=== PATIENT | male | born 1960 | race Caucasian/White ===

== ENCOUNTER 2018-11-27 15:39 | Emergency (ER) | payer BC ==
[~2018-11-27] VITALS: Ht 172.7 cm; Wt 79.9 kg
[2018-11-27 15:50] VITALS: Ht 172.7 cm; Wt 79.9 kg
[2018-11-27] MEDS ORDERED: SOD CHLORIDE 0.9% 800 ML IV ONE (17:30)
[2018-11-27 17:47] VITALS: BP 152/90; PULSE 66; RESP 18
--- NOTE | 2018-11-27 18:09 | ERD ---
ER Documentation Chief Complaint Chief Complaint ELEVATED BLOOD GLUCOSE > 500 TODAY; COMPLIANT WITH MEDS HPI 58-year-old male with a history of insulin dependent diabetes who presents the emergency room with hyperglycemia. He is asymptomatic otherwise. He denies any chest pain or shortness of breath, no recent illness or fevers. No nausea vomiting or diarrhea. The patient intermittently takes his metformin and has a regular dosing of his insulin. Patient has been losing weight unintentionally. His sugar has been greater than 500 prior to arrival. ROS All systems reviewed and are negative except as per history of present illness. Allergies Allergies: Coded Allergies: No Known Allergy (Unverified , 01/18/14) PMhx/Soc History of Surgery: Yes (eye 00, Left leg 82, KIDNEY TUMOR REMOVAL, HERNIA REPAIR) Anesthesia Reaction: No Hx Neurological Disorder: No Hx Respiratory Disorders: No Hx Cardiac Disorders: No Hx Psychiatric Problems: No Hx Miscellaneous Medical Probl: Yes (DM Type II, BOWEL OBSTRUCTION) Hx Alcohol Use: Yes (SOCIALLY) Hx Tobacco Use: No Smoking Status: Former smoker FmHx Family History: diabetes Physical Exam Vitals Vital Signs Date Temp Pulse Resp B/P (MAP) Pulse Ox O2 O2 Flow FiO2 Time Delivery Rate 11/27/18 98.0 66 18 152/90 100 Room Air 17:47 (110) 11/27/18 97.7 72 16 136/80 97 15:50 (98) Physical Exam General: Well developed, well nourished, no acute distress Head: Normocephalic, atraumatic. Eyes: Pupils equally reactive, EOM intact ENT: Moist mucous membranes Neck: Supple, no lymphadenopathy Respiratory: Lungs clear bilaterally, no distress Cardiovascular: RRR, no murmurs, rubs, or gallops Abdominal: Soft, non-tender, non-distended, no peritoneal signs : Deferred MSK: No edema, no unilateral swelling, 5/5 strength Neurologic: Alert and oriented, moving all extremities, normal speech, no focal weakness, no cerebellar signs Skin: No rash Psych: Normal mood Result Diagram: 11/27/18 1731 11/27/18 1731 Results 24 hrs Laboratory Tests Test 11/27/18 17:26 11/27/18 17:31 11/27/18 17:40 11/27/18 17:59 Blood Gas Blood venous Specimen Source Arterial Blood 11/27/2018 5:30:4 Date Drawn 6 PM Arterial Blood VENOUS LINE Gas Puncture Site Frank Test N/A Venous Blood pH 7.354 Venous Blood 56.3 mmHG pCO2 (Temp Corrected) Venous Blood pO2 17.2 mmHG (Temp Corrected) Venous Blood 30.7 mmol/L HCO3 Venous Blood 22.8 mmHG Oxygen Saturation Venous Blood 3.5 mmol/L Base Excess Venous Blood 15.6 g/dl Total Hemoglobin Venous Blood 22.5 % Oxyhemoglobin Venous Blood 1.1 % Methemoglobin Carboxyhemoglobi 0.3 % n Blood Gas 37.0 C Temperature Blood Gas ROOM AIR Modality FiO2 21.0 % Blood Gas M.D. Notified Whom Blood Gas 11/27/2018 5:37:2 Notified Time 1 PM White Blood 10.5 10^3/ul Count Red Blood Count 4.99 10^6/ul Hemoglobin 14.9 g/dl Hematocrit 43.9 % Mean Corpuscular 88.0 fl Volume Mean Corpuscular 29.9 pg Hemoglobin Mean Corpuscular 33.9 g/dl Hemoglobin Yessenia nt Red Cell 12.0 % Distribution Width Platelet Count 255 10^3/UL Mean Platelet 10.7 fl Volume Immature 0.600 % Granulocytes % Neutrophils % 76.1 % Lymphocytes % 18.4 % Monocytes % 4.3 % Eosinophils % 0.1 % Basophils % 0.5 % Nucleated Red 0.0 /100WBC Blood Cells % Immature 0.060 10^3/ul Granulocytes # Neutrophils # 8.0 10^3/ul Lymphocytes # 1.9 10^3/ul Monocytes # 0.5 10^3/ul Eosinophils # 0.0 10^3/ul Basophils # 0.1 10^3/ul Nucleated Red 0.0 10^3/ul Blood Cells # Sodium Level 142 mmol/L Potassium Level 4.8 mmol/L Chloride Level 98 mmol/L Carbon Dioxide 31 mmol/L Level Anion Gap 13 Blood Urea 21 mg/dl Nitrogen Creatinine 0.72 mg/dl Est Glomerular > 60 mL/min Filtrat Rate mL/min Glucose Level 473 mg/dl Calcium Level 10.1 mg/dl Phosphorus Level 3.9 mg/dl Magnesium Level 2.0 mg/dl Urine Color STRAW Urine Clarity CLEAR Urine pH 5.0 Urine Specific 1.031 Coin Urine Ketones TRACE mg/dL Urine Nitrite NEGATIVE mg/dL Urine Bilirubin NEGATIVE mg/dL Urine NEGATIVE mg/dL Urobilinogen Urine Leukocyte NEGATIVE Mansi/ul Esterase Urine Hemoglobin NEGATIVE mg/dL Urine Glucose 3+ mg/dL Urine Total NEGATIVE mg/dl Protein Bedside Glucose 418 mg/dL Current Medications Medications Dose Sig/Chidi Start Time Status Last (Trade) Ordered Route PRN Stop Time Admin Dose Reason Admin Sodium 800 ml @ ONCE ONCE 11/27/18 11/27/18 Chloride 800 mls/hr IV 17:30 11/27/18 17:45 18:29 Procedures/MDM LAB INTERPRETATION: * Hyperglycemia without evidence of diabetic ketoacidosis MEDICAL DECISION MAKING: The patient presents with hyperglycemia. Based on the patient's history this is likely secondary to patient's poor diabetic regimen. The patient is intermittently taking metformin. Irregular dosing of insulin. The patient exhibits no signs or symptoms concerning for infection or infarction. Low concern for DKA though screening would be appropriate. I advised the family to keep a log of glucose values throughout the day as well as times that they administer the medications. The patient needs tighter control and a better regimen. He has primary care follow-up on Sunday, 2 days. ER COURSE: * Patient exhibits no signs of diabetic ketoacidosis. The patient received IV fluids. 10 units of subcutaneous Humalog. * At this point the patient can be safely discharged home. CONSULTATION: [None] DISPOSITION PLAN: We discussed follow up with the patient's primary care doctor within 24 to 48 hours as needed. We also discussed return to the emergency room for worsening symptoms or worsening condition. Outpatient referral: Primary care on Sunday Discharge Medications: Continue home diabetes regimen Departure Diagnosis: Primary Impression: Hyperglycemia Condition: Stable Patient Instructions: Hyperglycemia (High Blood Sugar) Referrals: [facility] YOU HAVE RECEIVED A MEDICAL SCREENING EXAM AND THE RESULTS INDICATE THAT YOU DO NOT HAVE A CONDITION THAT REQUIRES URGENT TREATMENT IN THE EMERGENCY DEPARTMENT. FURTHER EVALUATION AND TREATMENT OF YOUR CONDITION CAN WAIT UNTIL YOU ARE SEEN IN YOUR DOCTORS OFFICE WITHIN THE NEXT 1-2 DAYS. IT IS YOUR RESPONSIBILITY TO MAKE AN APPOINTMENT FOR FOLOW-UP CARE. IF YOU HAVE A PRIMARY DOCTOR --you should call your primary doctor and schedule an appointment IF YOU DO NOT HAVE A PRIMARY DOCTOR YOU CAN CALL OUR PHYSICIAN REFERRAL HOTLINE AT IF YOU CAN NOT AFFORD TO SEE A PHYSICIAN YOU CAN CHOSE FROM THE FOLLOWING [facility] [address] [facility]. [facility] [address] [facility] [place] [facility] [address] [facility] [address] [facility] [address] [facility]. [facility] [address] [facility] [facility] YOU HAVE RECEIVED A MEDICAL SCREENING EXAM AND THE RESULTS INDICATE THAT YOU DO NOT HAVE A CONDITION THAT REQUIRES URGENT TREATMENT IN THE EMERGENCY DEPARTMENT. FURTHER EVALUATION AND TREATMENT OF YOUR CONDITION CAN WAIT UNTIL YOU ARE SEEN IN YOUR DOCTORS OFFICE WITHIN THE NEXT 1-2 DAYS. IT IS YOUR RESPONSIBILITY TO MAKE AN APPOINTMENT FOR FOLOW-UP CARE. IF YOU HAVE A PRIMARY DOCTOR --you should call your primary doctor and schedule and appointment IF YOU DO NOT HAVE A PRIMARY DOCTOR YOU CAN CALL OUR PHYSICIAN REFERRAL HOTLINE AT . IF YOU CAN NOT AFFORD TO SEE A PHYSICIAN YOU CAN CHOSE FROM THE FOLLOWING [facility] INSTITUTIONS: [facility] [address] [place] [address] [facility] [address] [place] [address] [facility] [address] [place] [address] Additional Instructions: Keep a log of glucose values and administration of medications. Follow-up with primary care physician on Sunday. KALI VALENTINO MD Nov 27, 2018 18:09
[2018-11-27] MEDS ORDERED: INSULIN LISPRO 100 UNIT/ML VIAL SC ONE (18:30)
== END 2018-11-27 18:57 | disposition home or self-care (01) ==
LOC: E/R 15:39
DX: E11.65 Type 2 diabetes mellitus with hyperglycemia (principal); Z79.4 Long term (current) use of insulin; Z87.891 Personal history of nicotine dependence
CPT/HCPCS: 36415; 80048; 81003; 82803; 82962; 83735; 84100; 85025; 96372; 99284; J1815; J7030